=== PATIENT | male | born 1950 | race Native Hawaiian/Other Pacific Islander ===

== ENCOUNTER 2018-01-18 19:17 | Emergency (ER) | payer OTHER ==
[~2018-01-18] VITALS: Ht 180.3 cm; Wt 92.5 kg
== END 2018-01-18 20:40 | disposition home or self-care (01) ==
LOC: ED 19:17
DX: S30.0XXA Contusion of lower back and pelvis, initial encounter (principal); W11.XXXA Fall on and from ladder, initial encounter; Y92.098 Other place in other non-institutional residence as the place of occurrence of the external cause
CPT/HCPCS: 99282

== ENCOUNTER 2018-02-20 18:20 | Outpatient (CLI) | payer OTHER | END 2018-02-20 22:53 | disposition home or self-care (01) | LOC: RAD 18:20 | DX: M54.2 Cervicalgia (principal); R51 Headache; R20.2 Paresthesia of skin ==